=== PATIENT | female | born 1940 | race Caucasian/White ===

== ENCOUNTER 2019-03-17 07:57 | Outpatient (CLI) | payer MEDICARE, OTHER, SELFPAY ==
--- NOTE | 2019-03-17 | EST_ITS ---
Patient Info Name: Ani Delacruz Age: 79 years : 1940 Gender: Female Ht: 60 in Wt: 130 lbs BSA: 1.59 m2 Exam Date: 03/17/2019 9:28 AM Exam Location: [facility] Stress Patient Status: Outpatient Admit Date: 03/17/2019 Staff Ordering Physician: Osman Calhoun DO Attending Provider: Osman Calhoun DO Exercise Technologist: Rajan Elizondo RDCS, RT Exercise Physician: Vance Godinez DO Exam Type: CA stress marta w NM Study Info A regadenoson stress test was performed. Summary 1. 1. Negative lexiscan stress test for ischemic ST changes by ECG criteria. 2. 2. Stable hemodynamics throughout the test. 3. 3. Nuclear scan to follow and will be reported separately. Please correlate with it. 4. 4. Patient informed of the above results. Protocol: Lexiscan Stress ECG Details Stage: REST Duration (min): 3 min : 55 sec HR (bpm): 65 SBP (mmHg): 141 DBP (mmHg): 70 Stage: REST Duration (min): 4 min : 3 sec HR (bpm): 65 SBP (mmHg): 141 DBP (mmHg): 70 Stage: STAGE 1 Duration (min): 0 min : 59 sec HR (bpm): 70 SBP (mmHg): 139 DBP (mmHg): 70 Stage: RECOVERY Duration (min): 1 min : 0 sec HR (bpm): 74 SBP (mmHg): 139 DBP (mmHg): 70 Stage: RECOVERY Duration (min): 2 min : 0 sec HR (bpm): 73 SBP (mmHg): 139 DBP (mmHg): 70 Stage: RECOVERY Duration (min): 3 min : 0 sec HR (bpm): 72 SBP (mmHg): 140 DBP (mmHg): 66 Stage: RECOVERY Duration (min): 4 min : 0 sec HR (bpm): 72 SBP (mmHg): 140 DBP (mmHg): 66 Stage: RECOVERY Duration (min): 4 min : 0 sec HR (bpm): 72 SBP (mmHg): 140 DBP (mmHg): 66 Rest HR: 65 bpm Peak HR: 74 bpm Rest Sys BP: 141 mmHg Peak Sys BP: 140 mmHg Max Pred HR: 139 bpm % Max Pred HR: 53 % Target HR: 118 bpm Max RPP: 10,360 bpm*mmHg Termination Reason: Completed protocol Cardiac Symptoms: None Total Time: 1 min : 0 sec Rest Dawkins BP: 70 mmHg Peak Dawkins BP: 66 mmHg Total Dose: 0.4 mg Resting ECG Sinus rhythm with first degree AV block, RBBB. Stress ECG No ST changes. Arrhythmias None. Report Signatures
--- NOTE | ~2019-03-17 | NM_ITS ---
EXAMINATION: NM marta stress w perfusion DATE: 03/17/2019 15:11 INDICATION: Dyspnea on exertion. TECHNIQUE: Rest images were obtained following intravenous administration of 10.5 mCi Tc99m tetrofosm in (Myoview). The patient was infused intravenously with Lexiscan (regadenoson). Then, 24.2 mCi Tc99m tetrofosmin (Myoview) was administered intravenously, and stress images were obtained. Data was renaldo nstructed into short axis and horizontal and vertical long axis SPECT images. Gated SPECT images were also obtained. COMPARISON: None. FINDINGS: There is no definite reversible or fixed perfusion abnormality to suggest ischemia or infar ction. There is no segmental wall motion abnormality. Left ventricular ejection fraction measures 4 6%. IMPRESSION: 1. No definite ischemia or infarct. 2. Left ventricular ejection fraction measuring 46%. Reviewed, dictated and finalized at location A. SERVICE ATTENDANT
== END 2019-03-17 07:58 | disposition home or self-care (01) ==
PROVIDERS: PCP Internal Medicine; Visit Provider Internal Medicine
DX: R06.09 Other forms of dyspnea (principal)
CPT/HCPCS: 78452; 93017; A9502; J2785

== ENCOUNTER → 2019-04-02 10:37 | Outpatient (CLI) | payer MEDICARE, OTHER, SELFPAY ==
--- NOTE | ~2019-04-02 | XR_ITS ---
EXAMINATION: XR shoulder LT min 2V DATE: 04/02/2019 11:02 INDICATION: Left shoulder primary osteoarthritis. Left shoulder pain. TECHNIQUE: 4 views of left shoulder were obtained. COMPARISON: None. FINDINGS: Bone alignment is normal. No fracture. There is mild osteoarthritis of glenohumeral joint a nd acromioclavicular joint. IMPRESSION: 1. Mild polyarticular osteoarthritis. Reviewed, dictated and finalized at location A. N BLEACHER
== END ==
PROVIDERS: PCP Internal Medicine; Visit Provider Nurse Practitioner Family
DX: M19.012 Primary osteoarthritis, left shoulder (principal)
CPT/HCPCS: 73030

== ENCOUNTER 2019-10-15 08:58 | Outpatient (CLI) | payer MEDICARE, OTHER, SELFPAY ==
--- NOTE | ~2019-10-15 | CT_ITS ---
EXAMINATION: CT abdomen pelvis wo con DATE: 10/15/2019 09:50 INDICATION: Left lower quadrant abdominal pain. TECHNIQUE: Computed tomography (CT) of the abdomen and pelvis was performed without intravenous contr ast. Automated exposure control and iterative reconstruction technique were employed. The dose-length product was 428.41 mGy-cm. COMPARISON: CT pelvis 03/14/2018 FINDINGS: The visualized portions of the lung bases demonstrates mild atelectasis on the right. No pl eural effusion. The heart size is normal. No pericardial effusion. There is a left posterior diaphrag matic hernia containing fat. The liver, gallbladder, spleen, pancreas, and adrenal glands are normal. There is cortical thinning of the kidneys. There is a 19 mm cyst in left kidney. There is no urolith iasis. There is diverticulosis of the colon without evidence of diverticulitis. There are no dilated loops of bowel. The appendix is not visualized. There are no pathologically enlarged lymph nodes. The re is no free intraperitoneal fluid. There is lumbar levoscoliosis and severe spondylosis. There is s evere lower thoracic spondylosis. IMPRESSION: 1. No etiology for the patient's symptoms. Reviewed, dictated and finalized at location B.
[2019-10-15 09:35] LABS: Estimated Glomerular Filt Rate 29
== END 2019-10-15 08:59 | disposition home or self-care (01) ==
PROVIDERS: PCP Internal Medicine; Visit Provider Internal Medicine
DX: R10.32 Left lower quadrant pain (principal)
CPT/HCPCS: 74176

== ENCOUNTER 2019-12-16 10:33 | Outpatient (CLI) | payer MEDICARE, OTHER, SELFPAY ==
--- NOTE | ~2019-12-16 | MM_ITS ---
EXAMINATION: MM screening denae BI w marybeth HISTORY: Screening mammogram TECHNIQUE: Craniocaudal and mediolateral oblique 3-D tomosynthesis images were obtained and synthetic 2-D images were generated. CAD analysis was submitted and interpreted. COMPARISON: 12/06/2018, 12/06/2017, 12/03/2016 bilateral digital screening mammogram examinations BREAST PARENCHYMAL COMPOSITION: There are scattered areas of fibroglandular density. FINDINGS: Bilateral benign calcifications and arterial calcifications. There is bilateral upper outer quadrant architectural distortion and calcified fat necrosis likely secondary to history of bilatera l partial mastectomy for bilateral breast cancer. There is no evidence of suspicious mass, calcification, or architectural distortion to suggest malign ashlie in either breast. There has been no suspicious interval change. IMPRESSION: 1. No mammographic evidence of malignancy. 2. Recommend routine screening mammography in one year. BI-RADS Category 2: Benign finding(s). Reviewed, dictated and finalized at location A.
== END 2019-12-16 10:34 | disposition home or self-care (01) ==
LOC: ANHIMG 10:40
PROVIDERS: PCP Internal Medicine; Visit Provider Internal Medicine
DX: Z12.31 Encounter for screening mammogram for malignant neoplasm of breast (principal)
CPT/HCPCS: 77063; 77067

== ENCOUNTER 2019-12-20 01:40 | Day surgery (SDC) | payer MEDICARE, OTHER, SELFPAY ==
[2019-12-09 10:47] VITALS: BMI 26.4
--- NOTE | 2019-12-20 12:23 | WPDANESEPPF ---
Anes - Initial Pre Proc Eval Procedure: Operation Date: 12/20/19 14:00 Proposed Procedures p Colonoscopy - Blake Coffey DO Date/Time: 12/20/19 12:23 Surgeon: Blake Coffey DO Pre Op Diagnosis: Bloody Stool/ Diarrhea Patient Data Age: 79 Gender: F Height: 1.52 m Weight: 61.3 kg Allergies Allergy/AdvReac Type Severity Reaction Status Date / Time No Known Allergies Allergy Verified 12/20/19 12:27 Home Medications Medication Instructions Recorded Confirmed Type ascorbate calcium (vitamin C) 500 500 mg PO BID 12/24/18 12/09/19 History mg tablet calcium carb-vit D3-minerals 600 1 tablet PO BID 12/24/18 12/09/19 History mg calcium-400 unit tablet cetirizine 5 mg-pseudoephedrine ER 1 tablet PO Q12H 12/24/18 12/09/19 History 120 mg tablet,extended release,12hr halobetasol-lactic acid 0.05 %-10 pkg TOPICAL 12/24/18 History % topical pack, cream and cream herbal complex no.174 450 mg 900 mg PO .2QD cap 12/24/18 12/09/19 History capsule hydroxychloroquine 200 mg tablet 200 mg PO BID 12/24/18 12/09/19 History leflunomide 10 mg tablet 10 mg PO DAILY 12/24/18 12/09/19 History multivitamin 1 tablet PO DAILY 12/24/18 12/09/19 History omega-3 fatty acids 1,000 mg 1,000 mg PO BID 12/24/18 12/09/19 History capsule psyllium husk 0.4 gram capsule See Rx Instructions PO DAILY 12/24/18 12/09/19 History red yeast rice 600 mg capsule 600 mg PO DAILY 12/24/18 12/09/19 History tramadol 50 mg tablet 50 mg PO Q12H PRN #60 tablet 12/30/18 12/09/19 Rx olopatadine 0.1 % eye drops 1 drop EACH EYE BID 03/25/19 12/09/19 History lisinopril 20 1 tablet PO DAILY #90 tablet 07/20/19 12/09/19 Rx mg-hydrochlorothiazide 12.5 mg tablet fluticasone propionate 50 1 spray NASAL BID #15.8 ml 08/13/19 12/09/19 Rx mcg/actuation nasal spray,suspension levothyroxine 75 mcg tablet 75 mcg PO DAILY #30 tablet 08/15/19 12/09/19 Rx Patient hx anesthesia problems: none Family hx anesthesia problems: none [facility] Past Medical History Medical History (Updated 10/16/19 @ 09:16 by Osman Calhoun DO) History of breast cancer History of colonic polyps Hypertension Hypothyroidism Osteoarthritis Rotator cuff tear, right Surgical History Surgical History History of appendectomy History of breast surgery History of cataract surgery History of hip surgery History of hysterectomy History of rotator cuff surgery Status post de Quervain's release surgery Family History Family History Mother Family history of blood dyscrasia, Onset Age: 92 Cerebrovascular accident, Onset Age: 92 Father Hypertension, Onset Age: 98 Other Breast cancer Rheumatoid arthritis Arthritis Spinal stenosis Social History Social History Smoking status: Never smoker Second hand tobacco smoke exposure: No Alcohol intake: current Alcohol use details: socially Substance use: never Substance use type: does not use Living arrangements: alone Spiritual care concerns: No Anes - Eval Final PreProcedure Day of Procedure 12/20/19 12:23 Patient weight: overweight Heart: regular rate and rhythm Lungs: clear to auscultation and normal air movement Airway: Mallampati scale class II Neurological: alert and oriented Last oral intake: >/= 8 hours ASA classification: III Emergent: no Anesthetic plan: proceed Anesthesia type and monitoring: general GIVS Informed Consent: The patient's anesthetic plan and its attendant risks and benefits were discussed with the patient/family/POA. Questions were solicited and answers provided to the satisfaction of the patient/family/POA.
[2019-12-20 12:44] VITALS: BP 152/72; PULSE 71; RESP 18; TEMP 36.6; O2SAT 100; BMI 25.1
--- NOTE | 2019-12-20 12:47 | SUR.PREOP ---
PT ARRIVED WITH ALL VISIBLE SKIN INTAKE. BRUISING TO THE LEFT EYE FROM A FALL YESTERDAY.
[2019-12-20] MEDS: LACTATED RINGERS 1,000 ML 150 ML IV CONT (13:09)
--- NOTE | 2019-12-20 13:28 | PM.IMHP ---
H&P: HPI History of Present Illness Date/Time: 12/20/19 13:28 Chief complaint: Bloody Stool/ Diarrhea Narrative: Reason for visit is colonoscopy. This very pleasant lady's seen at the request of the primary physician. Impression: Here very pleasant lady the an episode of abdominal pain, cramping and bloody diarrhea. This may have been secondary lying infection versus ischemia versus diverticulitis. It has since resolved. History of adenomatous colon polyps. Heart murmur. HTN. Breast cancer status post radiation and chemotherapy. Rheumatoid arthritis. Hypothyroidism. Recommendation: Colonoscopy. History: This very pleasant lady was traveling from [place]. She admits to eating a lot of cashew nuts. She subsequently began having some severe abdominal pain, cramping and bloody diarrhea. This lasted approximately 2 days. It has since stopped. This was originally back in August. Patient is here for colonoscopy evaluate for underlying inflammatory neoplastic disease. Patient does have a remote history of Adenomatouscolon polyps. Physical examination: General: very pleasant patient in no acute distress. HEENT: Head was normocephalic sclerae is clear mouth without masses neck was supple. Left eye shows ecchymosis. Heart: Rate rhythm regular without S3 or S4.A systolic murmur noted at the 2nd right intercostal space. Lungs: CTA. Abdomen: Soft with no guarding or rigidity. Bowel sounds were active. Neurologic: Cranial nerves 2 through 12 intact. No focal defects. No clonus. Musculoskeletal system: Revealed no joint tenderness or swelling no muscle atrophy. Extremities: Reveal no significant edema. Skin: Warm and dry with normal turgor. Mental status: intact. Patient is alert and oriented. Review of Systems Review of Systems: All systems reviewed & are unremarkable except as noted in HPI and below PMFSH Past Medical History Medical History (Updated 10/16/19 @ 09:16 by Osman Calhoun DO) History of breast cancer History of colonic polyps Hypertension Hypothyroidism Osteoarthritis Rotator cuff tear, right Surgical History Surgical History History of appendectomy History of breast surgery History of cataract surgery History of hip surgery History of hysterectomy History of rotator cuff surgery Status post de Quervain's release surgery Family History Family History Mother Family history of blood dyscrasia, Onset Age: 92 Cerebrovascular accident, Onset Age: 92 Father Hypertension, Onset Age: 98 Other Breast cancer Rheumatoid arthritis Arthritis Spinal stenosis Social History Social History Smoking status: Never smoker Second hand tobacco smoke exposure: No Alcohol intake: current Alcohol use details: socially Substance use: never Substance use type: does not use Living arrangements: alone Spiritual care concerns: No Meds Home Medications and Allergies Home Medications Medication Instructions Recorded Confirmed Type ascorbate calcium (vitamin C) 500 500 mg PO BID 12/24/18 12/20/19 History mg tablet calcium carb-vit D3-minerals 600 1 tablet PO BID 12/24/18 12/20/19 History mg calcium-400 unit tablet cetirizine 5 mg-pseudoephedrine ER 1 tablet PO Q12H 12/24/18 12/20/19 History 120 mg tablet,extended release,12hr herbal complex no.174 450 mg 900 mg PO .2QD cap 12/24/18 12/20/19 History capsule hydroxychloroquine 200 mg tablet 200 mg PO BID 12/24/18 12/20/19 History leflunomide 10 mg tablet 10 mg PO DAILY 12/24/18 12/20/19 History multivitamin 1 tablet PO DAILY 12/24/18 12/20/19 History omega-3 fatty acids 1,000 mg 1,000 mg PO BID 12/24/18 12/20/19 History capsule psyllium husk 0.4 gram capsule See Rx Instruct
[2019-12-20 14:10] VITALS: BP 123/51; PULSE 66; RESP 21; O2SAT 98
[2019-12-20 14:20] VITALS: BP 129/51; PULSE 67; RESP 17; O2SAT 98
[2019-12-20 14:31] VITALS: BP 109/48; PULSE 64; RESP 16; O2SAT 98
== END 2019-12-20 14:50 | disposition home or self-care (01) ==
PROVIDERS: PCP Internal Medicine; Visit Provider Internal Medicine Gastroenterology
PROC: 0DJD8ZZ Inspection of Lower Intestinal Tract, Via Natural or Artificial Opening Endoscopic (ICD-10-PCS; CPT 45378; principal; 2019-12-20 14:00)
DX: R19.7 Diarrhea, unspecified (principal); K92.1 Melena; R10.9 Unspecified abdominal pain; D12.0 Benign neoplasm of cecum; D12.2 Benign neoplasm of ascending colon; K57.30 Diverticulosis of large intestine without perforation or abscess without bleeding; I10 Essential (primary) hypertension; E03.9 Hypothyroidism, unspecified; M06.9 Rheumatoid arthritis, unspecified; R01.1 Cardiac murmur, unspecified; Z85.3 Personal history of malignant neoplasm of breast; Z92.3 Personal history of irradiation; Z86.010 Personal history of colon polyps
CPT/HCPCS: 45385; 45380; 88305; J2001; J2704; J7120

== ENCOUNTER → 2020-03-28 15:49 | Outpatient (CLI) | payer MEDICARE, OTHER, SELFPAY ==
--- NOTE | ~2020-03-28 | MR_ITS ---
EXAMINATION: MR shoulder RT wo con DATE: 03/28/2020 17:08 INDICATION: Right shoulder pain TECHNIQUE: Magnetic resonance imaging (MRI) of the right shoulder was performed without intravenous c ontrast. Sequences included axial PD-weighted FS FSE, coronal oblique PD-weighted FS FSE, coronal obl ique T2-weighted FS FSE, sagittal PD-weighted FS FSE, and sagittal T1-weighted SE. COMPARISON: None. FINDINGS: Coracoacromial arch: The acromion undersurface is curved in morphology (type II). Small anterior and lateral subacromial s purs along the insertion of the normal coracoacromial ligament. Moderate acromioclavicular osteoarthr itis. Rotator cuff: Complete tear along the middle and superior facet footplates of the infraspinatus tendon and majority of the supraspinatus tendon. A minimal portion of the anterior most supraspinatus tendon appears to remain intact. The tear margin is retracted approximately 5 cm medially to be on the rim of the gleno id. There is severe hemiatrophy of the infraspinatus muscle belly and moderate fatty atrophy of the s upraspinatus muscle belly. The teres minor tendon remains normal. Moderate subscapularis tendinopathy without discrete tear. Biceps tendon, glenoid labrum and glenohumeral cartilage: Partial thickness tear with significant attenuation of the extra articular long head biceps tendon be ginning approximately 5 cm below the level of the intertubercular groove. Of the remaining intact por tion of the tendon does not appear to extend to the glenoid anchor and is likely to represent an acce ssory head and portion which appears to insert along the floor of the intertubercular groove and a co uple of which appears contiguous with the coracohumeral ligament and anterior most portion of the sup raspinatus tendon. There is cephalad subluxation of the humeral head with significant cartilage loss involving greater than 50% the cartilage thickness along the cephalad third of the glenoid. Degenerat master tearing of the superior to posterior superior glenoid labrum. Additional partial thickness cartil age loss along the humeral head greatest superomedially where there is some underlying subarticular e brittny. Fluid: Moderate-sized glenohumeral joint effusion which extends into the subacromial/subdeltoid bursa throug h the full-thickness rotator cuff tear. There is synovitis at the axillary recess. Additional small a mount of fluid tracks caudally along the long head biceps tendon sheath. No intra-articular loose ost eochondral bodies. There are a few small round filling defects potentially representing extra-articul ar loose bodies within the subacromial/subdeltoid bursa. Bones: No fracture or pathologic marrow replacing process. IMPRESSION: 1. 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 2. Likely secondary degenerative tearing of the superior to posterior superior glenoid labrum and mod erate to severe glenohumeral osteoarthritis. 3. Partial thickness tear of the long head biceps tendon with remaining small and tach portion of the tendon likely representing accessory head inserting near the extensive the intertubercular groove wi th no evident intact tendon extending to the glenoid anchor. 4. Moderate acromioclavicular osteoarthritis. Reviewed, dictated and finalized at location A. ND WORKER IMPRESSION: 1. 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 2. Likely secondary degenerative tearing of the superior to posterior superior gle
== END ==
PROVIDERS: PCP Internal Medicine; Visit Provider Nurse Practitioner Family
DX: S46.211A Strain of muscle, fascia and tendon of other parts of biceps, right arm, initial encounter (principal); M19.011 Primary osteoarthritis, right shoulder; S43.431A Superior glenoid labrum lesion of right shoulder, initial encounter
CPT/HCPCS: 73221

== ENCOUNTER 2020-04-17 09:41 | Outpatient (CLI) | payer MEDICARE, OTHER, SELFPAY | END 2020-04-17 09:42 | disposition home or self-care (01) | LOC: ANHCOVIDVC 09:41 | PROVIDERS: PCP Internal Medicine | DX: Z23 Encounter for immunization (principal) | CPT/HCPCS: 0001A; 91300 ==

== ENCOUNTER 2020-05-08 09:43 | Outpatient (CLI) | payer MEDICARE, OTHER, SELFPAY | END 2020-05-08 09:44 | disposition home or self-care (01) | LOC: ANHCOVIDVC 09:43 | PROVIDERS: PCP Internal Medicine | DX: Z23 Encounter for immunization (principal) | CPT/HCPCS: 0002A; 91300 ==

== ENCOUNTER 2020-06-08 06:41 | Outpatient (CLI) | payer MEDICARE, OTHER, SELFPAY ==
--- NOTE | ~2020-06-08 | MR_ITS ---
EXAMINATION: MR cervical spine wo con DATE: 06/08/2020 15:33 INDICATION: Neck pain. TECHNIQUE: Magnetic resonance imaging (MRI) of the cervical spine was performed without intravenous c ontrast. Sequences included sagittal T2-weighted FSE, sagittal STIR FSE, sagittal T1-weighted FSE, ax ial MERGE, and axial T2-weighted FSE. COMPARISON: None FINDINGS: There is 9 degrees levocurvature of cervical spine. There is 2 mm retrolisthesis of C3 on C 4, 2 mm anterolisthesis of C4 on C5, and 3 mm retrolisthesis of C6 on C7. Vertebral body heights are normal. There is severely decreased disc height from C3-C4 through C6-C7. The spinal cord signal inte nsity is normal. The following disc levels are specifically discussed: C2-C3: The disc does not extend beyond the endplate margin. There is severe right and mild left uncov ertebral joint osteoarthritis. There is severe bilateral facet joint osteoarthritis. There is mild ri ght neural foraminal stenosis. There is mild central canal stenosis. C3-C4: The disc is bulging. There is severe bilateral uncovertebral joint osteoarthritis. There is se ashley right and moderate left facet joint osteoarthritis. There is moderate right and mild left neural foraminal stenosis. There is mild central canal stenosis. C4-C5: The disc is bulging. There is severe bilateral uncovertebral joint osteoarthritis. There is se ashley bilateral facet joint osteoarthritis. There is moderate right and mild left neural foraminal geovany nosis. There is mild central canal stenosis. C5-C6: The disc is bulging. There is severe bilateral uncovertebral joint osteoarthritis. There is mi ld right and severe left facet joint osteoarthritis. There is mild right and moderate left neural for aminal stenosis. There is mild central canal stenosis. C6-C7: The disc is bulging. There is severe bilateral uncovertebral joint osteoarthritis. There is mo derate bilateral facet joint osteoarthritis. There is mild right and moderate left neural foraminal s tenosis. There is mild central canal stenosis. C7-T1: The disc is bulging. There is moderate bilateral uncovertebral joint osteoarthritis. There is mild right and severe left facet joint osteoarthritis. There is mild bilateral neural foraminal steno sis. There is mild central canal stenosis. IMPRESSION: 1. Severe cervical spondylosis. Reviewed, dictated and finalized at location B.
--- NOTE | 2020-06-08 06:59 | ECHO_ITS ---
Patient Info Name: Ani Delacruz Age: 80 years : 1940 Gender: Female Ht: 60 in Wt: 130 lbs BSA: 1.59 m2 HR: 69 bpm BP: 152 / 76 mmHg Technical Quality: Good Exam Date: 06/08/2020 7:10 AM Exam Location: [facility] Patient Status: Outpatient Admit Date: 06/08/2020 Staff Ordering Physician: Osman Calhoun DO Parks [employer] Recreation Worker: Sayra Baca RDCS Attending Provider: Osman Calhoun DO Referring Physician: Lj PATEL; Exam Type: CA echo doppler color flow Study Info Indications R01.1 - Cardiac murmur, unspecified Complete two-dimensional, color flow and Doppler transthoracic echocardiogram is performed. Summary 1. Complete two-dimensional, color flow and Doppler transthoracic echocardiogram is performed. 2. Left ventricular chamber dimension is normal. 3. Left ventricular systolic function is normal, estimated at 50-55%. 4. There is mildly increased left ventricular wall thickness. 5. The left ventricular diastolic function is abnormal. 6. E/e' 30 is significantly elevated. 7. Global longitudinal strain is abnormal at -14.0%. 8. Left atrial chamber dimension is moderately enlarged. 9. Right atrial chamber dimension is mildly enlarged. 10. There is moderate aortic valve sclerosis. 11. There is mild aortic valve stenosis with a peak velocity of 219 cm/s, mean gradient of 11 mmHg, and aortic valve area of 1.8 cm2. 12. There is trace aortic valve regurgitation. 13. The mitral valve has moderately calcified leaflets and moderately calcified annulus. 14. There is moderate mitral valve regurgitation. 15. There is moderate tricuspid valve regurgitation. 16. Moderate pulmonary hypertension, estimated pulmonary arterial systolic pressure is 53 mmHg. Left Ventricle E/e' 30 is significantly elevated. Global longitudinal strain is abnormal at -14.0%. Left ventricular chamber dimension is normal. Left ventricular systolic function is normal, estimated at 50-55%. There is mildly increased left ventricular wall thickness. The left ventricular diastolic function is abnormal. Right Ventricle Right ventricular chamber dimension is normal. Right ventricular systolic function is normal. Left Atria Left atrial chamber dimension is moderately enlarged. Right Atria Right atrial chamber dimension is mildly enlarged. Aortic Valve The aortic valve is trileaflet. There is moderate aortic valve sclerosis. There is mild aortic valve stenosis with a peak velocity of 219 cm/s, mean gradient of 11 mmHg, and aortic valve area of 1.8 cm2. There is trace aortic valve regurgitation. Pulmonic Valve There is no pulmonic regurgitation. Mitral Valve The mitral valve has moderately calcified leaflets and moderately calcified annulus. There is no mitral valve stenosis. There is moderate mitral valve regurgitation. Tricuspid Valve There is moderate tricuspid valve regurgitation. Moderate pulmonary hypertension, estimated pulmonary arterial systolic pressure is 53 mmHg. Pericardium/Pleural There is no pericardial effusion. Inferior Vena Cava Normal inferior vena cava with >50% collapse upon inspiration consistent with normal right atrial pressure, 5 mmHg. Aorta The aortic root size at the sinus of Valsalva is normal. Left Ventricular Outflow Tract Name Value Normal
== END 2020-06-08 06:42 | disposition home or self-care (01) ==
PROVIDERS: PCP Internal Medicine; Visit Provider Internal Medicine
DX: R01.1 Cardiac murmur, unspecified (principal); M54.2 Cervicalgia; R20.0 Anesthesia of skin; M47.892 Other spondylosis, cervical region; I08.3 Combined rheumatic disorders of mitral, aortic and tricuspid valves
CPT/HCPCS: 72141; 93306

== ENCOUNTER 2020-09-05 09:41 | Outpatient (CLI) | payer MEDICARE, OTHER, SELFPAY ==
--- NOTE | 2020-09-05 11:00 | NEURO_ITS ---
Impression: # Complains of left upper extremity numbness. # Left ulnar neuropathy around the elbow. # Bilateral sensory Carpal Tunnel Syndrome, left more than right. # Normal F-waves. # Needle/EMG exam minimally neurogenic in left APB but rest of the muscles are normal. Nerve Conduction Studies Anti Sensory Summary Table Stim Site NR Peak (ms) P-T Amp (?V) Site1 Site2 Delta-P (ms) Dist (cm) Luis Angel (m/s) Left Median Anti Sensory (2-3nd Digit) Wrist 4.8 10.4 Wrist 2-3nd Digit 4.8 14.0 29 Wrist 4.2 10.6 Wrist 2-3nd Digit 4.8 14.0 29 Right Median Anti Sensory (2-3nd Digit) Wrist 4.1 31.1 Wrist 2-3nd Digit 4.1 14.0 34 Wrist 6.1 8.9 Wrist 2-3nd Digit 4.1 14.0 34 Left Radial Anti Sensory (Base 1st Digit) Wrist 2.2 15.9 Wrist Base 1st Digit 2.2 0.0 Right Radial Anti Sensory (Base 1st Digit) Wrist 2.7 18.9 Wrist Base 1st Digit 2.7 0.0 Left Ulnar Anti Sensory (5th Digit) Wrist 2.7 17.6 Wrist 5th Digit 2.7 14.0 52 Right Ulnar Anti Sensory (5th Digit) Wrist 3.6 19.4 Wrist 5th Digit 3.6 14.0 39 Motor Summary Table Stim Site NR Onset (ms) O-P Amp (mV) Site1 Site2 Delta-0 (ms) Dist (cm) Luis Angel (m/s) Left Median Motor (Abd Poll Brev) Wrist 3.8 0.7 Elbow Wrist 5.1 28.0 55 Elbow 8.9 2.2 Right Median Motor (Abd Poll Brev) Wrist 3.4 2.3 Elbow Wrist 5.2 27.0 52 Elbow 8.6 2.0 Left Ulnar Motor (Abd Dig Minimi) Wrist 2.8 4.9 A Elbow Wrist 6.0 27.0 45 A Elbow 8.8 3.6 B Elbow Wrist 3.8 17.0 45 B Elbow 6.6 3.5 Right Ulnar Motor (Abd Dig Minimi) Wrist 2.9 5.2 A Elbow Wrist 5.0 26.0 52 A Elbow 7.9 4.0 F Wave Studies NR F-Lat (ms) L-R F-Lat (ms) Left Median (Mrkrs) (Abd Poll Brev) 28.71 0.70 Right Median (Mrkrs) (Abd Poll Brev) 29.42 0.70 Left Ulnar (Mrkrs) (Abd Dig Min) 30.24 0.34 Right Ulnar (Mrkrs) (Abd Dig Min) 30.57 0.34 EMG Side Muscle Nerve Root Ins Act Fibs Amp Dur Recrt Comment Right 1stDorInt Ulnar C8-T1 Nml Nml Nml Nml Nml Right Ext Indicis Radial (Post Int) C7-8 Nml Nml Nml Nml Nml Right Ext Digitorum Radial (Post Int) C7-8 Nml Nml Nml Nml Nml Right BrachioRad Radial C5-6 Nml Nml Nml Nml Nml Right PronatorTeres Median C6-7 Nml Nml Nml Nml Nml Right Abd Poll Brev Median C8-T1 Nml Nml Nml Nml Nml Left 1stDorInt Ulnar C8-T1 Nml Nml Nml Nml Nml Left Ext Indicis Radial (Post Int) C7-8 Nml Nml Nml Nml Nml Left Ext Digitorum Radial (Post Int) C7-8 Nml Nml Nml Nml Nml Left BrachioRad Radial C5-6 Nml Nml Nml Nml Nml Left PronatorTeres Median C6-7 Nml Nml Nml Nml Nml Left Abd Poll Brev Median C8-T1 Nml Nml Incr >12ms Reduced Right ABD Dig Min Ulnar C8-T1 Nml Nml Nml Nml Nml Left ABD Dig Min Ulnar C8-T1 Nml Nml Nml Nml Nml MTDD
== END 2020-09-05 09:42 | disposition home or self-care (01) ==
PROVIDERS: PCP Internal Medicine; Visit Provider Neurological Surgery
DX: G56.02 Carpal tunnel syndrome, left upper limb (principal); G56.03 Carpal tunnel syndrome, bilateral upper limbs; G56.22 Lesion of ulnar nerve, left upper limb
CPT/HCPCS: 95886; 95911

== ENCOUNTER 2021-01-22 09:40 | Outpatient (CLI) | payer MEDICARE, OTHER, SELFPAY ==
--- NOTE | ~2021-01-22 | MM_ITS ---
EXAMINATION: MM screening denae BI w marybeth HISTORY: Screening TECHNIQUE: Craniocaudal and mediolateral oblique 3-D tomosynthesis images were obtained and synthetic 2-D images were generated. CAD analysis was submitted and interpreted. COMPARISON: Comparison to multiple prior studies sequentially, with oldest reviewed study dated 11/16. BREAST PARENCHYMAL COMPOSITION: Breast composed of scattered areas of fibroglandular density. FINDINGS: There is no evidence of suspicious mass, calcification, or architectural distortion to sugg est malignancy in either breast. There has been no suspicious interval change. IMPRESSION: 1. No mammographic evidence of malignancy. 2. Recommend routine screening mammography in one year. BI-RADS Category 1: Negative Reviewed, dictated and finalized at location A. IC ADDRESS TECHNICIAN
== END 2021-01-22 09:41 | disposition home or self-care (01) ==
LOC: ANHIMG 09:43
PROVIDERS: PCP Internal Medicine; Visit Provider Internal Medicine
DX: Z12.31 Encounter for screening mammogram for malignant neoplasm of breast (principal)
CPT/HCPCS: 77063; 77067

== ENCOUNTER 2021-01-26 14:31 | Outpatient (CLI) | payer MEDICARE, OTHER, SELFPAY ==
--- NOTE | 2021-01-26 14:56 | ECHO_ITS ---
Patient Info Name: Ani Delacruz Age: 81 years : 1940 Gender: Female Ht: 60 in Wt: 125 lbs BSA: 1.56 m2 HR: 78 bpm BP: 152 / 72 mmHg Technical Quality: Fair Exam Date: 01/26/2021 3:33 PM Exam Location: [facility] Patient Status: Outpatient Admit Date: 01/26/2021 Staff Ordering Physician: Vance Godinez DO Emissions Repair Technician: ALEX Attending Provider: Vance Godinez DO Referring Physician: Herbert MAIER; Exam Type: CA echo doppler color flow Study Info Indications - NONRHEUMATIC AORTIC VALVE STENOSIS Complete two-dimensional, color flow and Doppler transthoracic echocardiogram is performed. Summary 1. Complete two-dimensional, color flow and Doppler transthoracic echocardiogram is performed. 2. Left ventricular chamber dimension is normal. 3. Left ventricular systolic function is preserved, estimated at 50-55%. 4. The left ventricular diastolic function is grade III diastolic dysfunction. 5. E/e' 39 is significantly elevated. 6. Left atrial chamber dimension is moderately enlarged. 7. Right atrial chamber dimension is mildly enlarged. 8. There is mild aortic valve sclerosis. 9. There is mild aortic valve stenosis with a peak velocity of 257 cm/s, mean gradient of 12 mmHg, and aortic valve area of 1.4 cm2. 10. There is mild aortic valve regurgitation. 11. The mitral valve has mildly calcified leaflets and severely calcified annulus. 12. There is mild mitral valve stenosis based on valve area of 1.7 cm2 by VTI and mean gradient of 3 mmHg. 13. There is mild mitral valve regurgitation. 14. There is mild to moderate tricuspid valve regurgitation. 15. Moderate pulmonary hypertension, estimated pulmonary arterial systolic pressure is 50 mmHg. Left Ventricle E/e' 39 is significantly elevated. Left ventricular systolic function is preserved, estimated at 50-55%. Left ventricular chamber dimension is normal. The left ventricular diastolic function is grade III diastolic dysfunction. Right Ventricle Right ventricular systolic function is normal and with normal TAPSE 1.7 cm. Right ventricular chamber dimension is normal. Left Atria Left atrial chamber dimension is moderately enlarged. Right Atria Right atrial chamber dimension is mildly enlarged. Aortic Valve The aortic valve is trileaflet. There is mild aortic valve sclerosis. There is mild aortic valve stenosis with a peak velocity of 257 cm/s, mean gradient of 12 mmHg, and aortic valve area of 1.4 cm2. There is mild aortic valve regurgitation. Pulmonic Valve There is no pulmonic regurgitation. Mitral Valve The mitral valve has mildly calcified leaflets and severely calcified annulus. There is mild mitral valve stenosis based on valve area of 1.7 cm2 by VTI and mean gradient of 3 mmHg. There is mild mitral valve regurgitation. Tricuspid Valve There is mild to moderate tricuspid valve regurgitation. Moderate pulmonary hypertension, estimated pulmonary arterial systolic pressure is 50 mmHg. Pericardium/Pleural There is no pericardial effusion. Inferior Vena Cava Normal inferior vena cava with >50% collapse upon inspiration consistent with normal right atrial pressure, 5 mmHg. Aorta The aortic root size at the sinus of Valsalva is normal. Left Ventricular Outflow Tract Name Value Normal LVOT 2D ----
== END 2021-01-26 14:32 | disposition home or self-care (01) ==
LOC: ANHCARD 14:34
PROVIDERS: PCP Internal Medicine; Visit Provider Internal Medicine Cardiovascular Disease
DX: I35.0 Nonrheumatic aortic (valve) stenosis (principal); I35.1 Nonrheumatic aortic (valve) insufficiency; I34.0 Nonrheumatic mitral (valve) insufficiency; I36.1 Nonrheumatic tricuspid (valve) insufficiency; I27.20 Pulmonary hypertension, unspecified
CPT/HCPCS: 93306

== ENCOUNTER 2021-03-24 18:24 | Emergency (ER) | payer MEDICARE, OTHER, SELFPAY ==
--- NOTE | 2021-03-24 18:25 | ED.WOUNDLAC ---
HPI - Wound/Laceration General Chief Complaint: Wound/Laceration Stated Complaint: Laceration on forehead Time Seen by Provider: 03/24/21 18:39 Source: patient, RN notes reviewed and old records reviewed Mode of arrival: ambulatory Limitations: no limitations History of Present Illness HPI narrative: 81-year-old female presents to the [facility] with complaints of a laceration to her right sided forehead. States that she slipped and fell approximately 4:00 today. Bleeding is controlled. Does not take blood thinners. Denies neck or head pain. No blurry vision or change in vision. Denies any back pain, chest pain, abdominal pain. Neurologically intact. Related Data Home Medications Medication Instructions Recorded Confirmed calcium carb-vit D3-minerals 600 1 tablet PO BID 12/24/18 03/24/21 mg calcium-400 unit tablet cetirizine 5 mg-pseudoephedrine ER 1 tablet PO Q12H 12/24/18 03/24/21 120 mg tablet,extended release,12hr herbal complex no.174 450 mg 900 mg PO .2QD cap 12/24/18 03/24/21 capsule hydroxychloroquine 200 mg tablet 200 mg PO BID 12/24/18 03/24/21 leflunomide 10 mg tablet 10 mg PO DAILY 12/24/18 03/24/21 multivitamin 1 tablet PO DAILY 12/24/18 03/24/21 psyllium husk 0.4 gram capsule See Rx Instructions PO DAILY 12/24/18 03/24/21 olopatadine 0.1 % eye drops 1 drop EACH EYE BID 03/25/19 03/24/21 biotin 10,000 mcg disintegrating 10,000 mcg PO DAILY 06/21/20 03/24/21 tablet calcium citrate 250 mg 1 tablet PO DAILY tablet 06/21/20 03/24/21 calcium-vitamin D3 5 mcg (200 unit) tablet fish oil 400 mg-flaxseed 400 2 cap PO BID cap 06/21/20 03/24/21 mg-prim,blk [employer] sales and lending team member,borag oils 200 mg capsule tramadol 200 mg capsule 200 mg PO DAILY 06/21/20 03/24/21 24h,extended release(25-75) vitamins A,C,U-iheq-mqfhmp 14,320 1 cap PO DAILY cap 06/21/20 03/24/21 unit-226 mg-200 unit capsule Allergies Allergy/AdvReac Type Severity Reaction Status Date / Time No Known Allergies Allergy Verified 03/24/21 18:48 Review of Systems Review of Systems: All systems reviewed & are unremarkable except as noted in HPI and below Constitutional: Constitutional: Reports no additional constitutional complaints, Denies chills and Denies fever(s) Eyes: Eyes: Reports no additional eye complaints, Denies change in vision and Denies photophobia ENT: Reports system reviewed and no additional complaints, except as documented Cardiovascular: Cardiovascular: Reports no additional cardiovascular complaints and Denies chest pain Respiratory: Respiratory: Reports no additional respiratory complaints, Denies cough and Denies dyspnea Gastrointestinal: Gastrointestinal: Reports no additional gastrointestinal complaints, Denies abdominal pain, Denies nausea and Denies vomiting Musculoskeletal: Musculoskeletal: Reports no additional musculoskeletal complaints and Denies back pain Integumentary/Breasts: Skin/Breast: Reports as per HPI, Denies swelling and Reports wounds (forehead laceration) Neurologic: Reports system reviewed and no additional complaints, except as documented, Denies confusion, Denies vertigo, Denies dizziness, Denies syncope, Denies headache(s), Denies focal weakness, Denies numbness and Denies weakness Psychiatric: Psychiatric: Reports no additional psychiatric complaints Allergic/Immunologic: Allergic/Immunologic: Reports no additional allergic/immunologic complaints PMFSH Past Medical History Medical History History of breast cancer History of colonic polyps Hypertension Hypothyroidism Osteoarthritis Rotator cuff tear, right Surgical History Surgical History History of appendectomy History of breast surgery History of cataract surgery History of hip surgery History of hysterectomy Status post de Quervain's release surgery Family History Family History
[2021-03-24 18:40] VITALS: BP 146/79; PULSE 92; RESP 18; TEMP 36.8; O2SAT 100
[2021-03-24] MEDS: LIDOCAINE, EPINEPHRINE, TETRACAINE VISCOUS SOLN 3 ML TOPICAL (18:58)
[2021-03-24] MEDS: TETANUS,DIPHTHERIA,AC PERTUSSIS ADULT (0.5 ML) BOOSTRIX IM (18:58)
== END 2021-03-24 19:52 | disposition home or self-care (01) ==
PROVIDERS: Emergency Provider Nurse Practitioner; PCP Internal Medicine
DX: S01.81XA Laceration without foreign body of other part of head, initial encounter (principal); W01.0XXA Fall on same level from slipping, tripping and stumbling without subsequent striking against object, initial encounter; Z23 Encounter for immunization; I10 Essential (primary) hypertension; E03.9 Hypothyroidism, unspecified; M19.90 Unspecified osteoarthritis, unspecified site; Z85.3 Personal history of malignant neoplasm of breast
CPT/HCPCS: 12013; 90471; 90715; 99212; G0463

== ENCOUNTER 2021-04-13 13:53 | Emergency (ER) | payer MEDICARE, OTHER, SELFPAY ==
--- NOTE | ~2021-04-13 | XR_ITS ---
XR chest 1V portable 04/13/2021 14:48 Indication: Weakness. Hypertension. Procedure: AP portable chest Comparison: 04/19/2009 Findings: Bibasilar airspace disease, left greater than right. Small pleural effusions. Cardiomegaly. No edema. No pneumothorax. No acute osseous abnormality. Impression: 1: Bibasilar airspace disease, suspicious for pneumonia. 2: Small pleural effusions. Reviewed, dictated and finalized at location B. L OPERATOR Impression: 1: Bibasilar airspace disease, suspicious for pneumonia. 2: Small pleural effusions.
--- NOTE | ~2021-04-13 | CT_ITS ---
EXAMINATION: CT brain wo con DATE: 04/13/2021 14:52 INDICATION: Head injury post fall TECHNIQUE: Computed tomography (CT) of the head was performed without intravenous contrast. Sagittal and coronal reconstructions were performed. The mA was adjusted according to patient size. Iterative reconstruction technique was employed. The dose-length product was 529.67 mGy-cm. COMPARISON: None FINDINGS: Left parietal scalp hematoma. Underlying nondisplaced calvarial fracture. There are multiple small fo ci of subarachnoid hemorrhage including at the bilateral sylvian fissures, the right frontal lobe orly ng the anterior skull base, along the anterior falx near the oumar diana and 3 additional foci in th e more posterior right frontal lobe near the vertex. No subdural or subarachnoid hemorrhage identifie d. No acute intracranial infarction. There is mild scattered white matter hypoattenuation consistent with chronic small vessel ischemic disease. Symmetric prominence of the sulci and ventricles consiste nt with mild age-appropriate diffuse cerebral volume loss. No mass/mass effect. The orbits, paranasal sinuses and mastoid air cells are normal. The right mastoid is hyperpneumatized with small effusion. IMPRESSION: 1. Left posterior skull fracture and multiple foci of subarachnoid hemorrhage with right cerebral hem isphere predominance. Dr. Hudson discussed these findings with Dr. Miranda at 3:08 PM. 2. Age-related changes including mild diffuse volume loss and mild scattered white matter hypoattenua tion consistent with chronic small vessel schema disease. Reviewed, dictated and finalized at location A. PRESIDENT INDUSTRIAL RELATIONS IMPRESSION: 1. Left posterior skull fracture and multiple foci of subarachnoid hemorrhage w ith right cerebral hemisphere predominance. Dr. Hudson discussed these findin gs with Dr. Miranda at 3:08 PM. 2. Age-related changes including mild diffuse volume loss and mild scattered wh ite matter hypoattenuation consistent with chronic small vessel schema disease.
[2021-04-13 14:00] VITALS: BP 145/71; PULSE 96; RESP 22; TEMP 36.7; O2SAT 98
[2021-04-13 14:23] VITALS: PULSE 98
--- NOTE | 2021-04-13 14:38 | ECG_ITS ---
Measurements Intervals [place] Rate: 94 P: -2 WV: 225 QRS: -52 QRSD: 142 T: 114 QT: 414 QTc: 519 Interpretive Statements SINUS RHYTHM WITH FIRST DEGREE AV BLOCK LEFT AXIS DEVIATION RIGHT BUNDLE BRANCH BLOCK LEFT VENTRICULAR HYPERTROPHY WITH ST-T CHANGE BASELINE ARTIFACT- I, II, AVR, V5 ABNORMAL ECG Electronically Signed On 04-13-2021 14:53:40 [employer]EM[employer] by Vance Godinez D.O.
--- NOTE | 2021-04-13 14:42 | ED.WEAKNESS ---
HPI - Weakness General Chief complaint: Weakness Stated complaint: dizzy, N/V Time Seen by Provider: 04/13/21 14:00 Source: patient and RN notes reviewed Mode of arrival: ambulatory Limitations: no limitations History of Present Illness HPI Narrative: This is a 81 year old female who presents for evaluation of weakness and dizziness. Patient reports 2 hours ago she felt weak and lightheaded. She reports she was able to lower her self to a chair. Her daughter is at bedside and she thinks patient fell. She reports patient was found on the ground in the garage . Patient denies falling and hitting her head today. She does reports hitting her head 2 weeks ago. She was evaluated at that time in an urgent care and she received sutures. She denies getting CT brain at that time. She also reports nausea and vomiting over past 2 hours. She denies cough, chest pain, shortness of breath or abdominal pain. She reports chronic left shoulder pain. Related Data Home Medications Medication Instructions Recorded Confirmed calcium carb-vit D3-minerals 600 1 tablet PO BID 12/24/18 03/31/21 mg calcium-400 unit tablet cetirizine 5 mg-pseudoephedrine ER 1 tablet PO Q12H 12/24/18 03/31/21 120 mg tablet,extended release,12hr herbal complex no.174 450 mg 900 mg PO .2QD cap 12/24/18 03/31/21 capsule hydroxychloroquine 200 mg tablet 200 mg PO BID 12/24/18 03/31/21 leflunomide 10 mg tablet 10 mg PO DAILY 12/24/18 03/31/21 multivitamin 1 tablet PO DAILY 12/24/18 03/31/21 psyllium husk 0.4 gram capsule See Rx Instructions PO DAILY 12/24/18 03/31/21 olopatadine 0.1 % eye drops 1 drop EACH EYE BID 03/25/19 03/31/21 biotin 10,000 mcg disintegrating 10,000 mcg PO DAILY 06/21/20 03/31/21 tablet calcium citrate 250 mg 1 tablet PO DAILY tablet 06/21/20 03/31/21 calcium-vitamin D3 5 mcg (200 unit) tablet fish oil 400 mg-flaxseed 400 2 cap PO BID cap 06/21/20 03/31/21 mg-prim,blk staff radiologist,borag oils 200 mg capsule tramadol 200 mg capsule 200 mg PO DAILY 06/21/20 03/31/21 24h,extended release(25-75) vitamins A,C,E-hitn-vmzyti 14,320 1 cap PO DAILY cap 06/21/20 03/31/21 unit-226 mg-200 unit capsule Allergies Allergy/AdvReac Type Severity Reaction Status Date / Time No Known Allergies Allergy Verified 03/30/21 11:23 Review of Systems Review of Systems: All systems reviewed & are unremarkable except as noted in HPI and below PMFSH Past Medical History Medical History History of breast cancer History of colonic polyps Hypertension Hypothyroidism Osteoarthritis Rotator cuff tear, right Surgical History Surgical History History of appendectomy History of breast surgery History of cataract surgery History of hip surgery History of hysterectomy Status post de Quervain's release surgery Family History Family History Mother Family history of blood dyscrasia, Onset Age: 92 Cerebrovascular accident, Onset Age: 92 Father Hypertension, Onset Age: 98 Other Breast cancer Rheumatoid arthritis Arthritis Spinal stenosis Social History Social History Smoking status: Never smoker Second hand tobacco smoke exposure: Yes Alcohol intake: current Alcohol use details: socially Substance use: never Substance use type: does not use Spiritual care concerns: No Exam Const: General: alert Nutritional Appearance: thin Orientation/consciousness: patient oriented x3 HENMT: Other: left posterior scalp swelling, no bleeding, no laceration Eyes: Pupils: Equal, round and reactive pupils present EOM: EOMs intact bilaterally Chest: Chest palpation & inspection: normal inspection of the chest Resp: Effort & Inspection: normal respiratory effort and no retr
[2021-04-13 15:17] LABS: Basophils Percent Auto 0.6 % (0.2-1.2); Hematocrit 37.4 % (37.0-47.0); Hemoglobin 11.8 g/dL (12.0-15.0); Immature Granulocyte Absolute 0.03 K/mm3 (0.00-0.031); Immature Granulocyte Percent A 0.4 % (0-0.5); Immature Platelet Fraction Pct 6.3 % (0.9-11.2); Lymphocytes Absolute Auto 0.54 K/mm3 (0.9-3.2); Lymphocytes Percent Auto 7.7 % (18.3-44.2); Mean Corpuscular HGB Conc 31.6 g/dl (32-36); Mean Corpuscular Hemoglobin 30.4 pg (26-34); Mean Corpuscular Volume 96.4 fl (80-100); Monocytes Absolute Auto 0.7 K/mm3 (0.1-0.6); Monocytes Percent Auto 9.9 % (2.6-8.5); Neutrophils Absolute Auto 5.7 K/mm3 (1.3-6.7); Neutrophils Percent Auto 81.4 % (45.5-73.1); Platelet Count Result 142 k/mm3 (150-375); Red Blood Count 3.88 M/mm3 (4.2-5.4); Red Cell Distribution Width 16.1 % (11.5-14.5)
[2021-04-13 15:24] LABS: Lactic Acid Reflex 2.1 mmol/L (0.7-2.1)
[2021-04-13 15:25] LABS: INR 1.4; Prothrombin Time 16.6 Seconds (11.1-14.7)
[2021-04-13 15:26] LABS: Partial Thromboplastin Time 29.6 SECONDS (22.3-36.8)
[2021-04-13 15:45] LABS: Add Urine Microscopic? YES; Appearance Urine Clear (Clear); Bilirubin Urine Negative (Negative); Blood Urine Negative (Negative); Color Urine Yellow (Yellow); Glucose Urine UA Negative (Negative); Ketones Urine Trace mg/dL (Negative); Leukocyte Esterase Ur Negative LEU/UL (Negative); Nitrate Urine Negative (Negative); Protein Urine 2+ mg/dL (Negative); RBC Urine 0-2 /hpf (0-2); Specific Grav Ur 1.019 (1.001-1.035); Urobilinogen Urine Negative mg/dL (<2.0); WBC Urine 0-3 /hpf
--- NOTE | 2021-04-13 15:47 | PC.NURSE ---
made contact with [facility], [facility], [facility], and [facility] to transfer pt to [facility]. all companies declined. made contact with [facility] to transfer pt. [facility] has an eta of 18 minutes. Lights and sirens were called per Dr. Miranda
[2021-04-13 15:52] VITALS: BP 143/85; PULSE 94; RESP 18; TEMP 36.6; O2SAT 100
[2021-04-13 16:02] LABS: Alanine Aminotransferase 528 U/L (4-35); Albumin Level 3.7 g/dL (3.5-5.1); Alkaline Phosphatase 203 U/L (38-126); Anion Gap 7 mmol/L (8-16); Bilirubin,Total 0.7 mg/dL (0.2-1.3); Blood Urea Nitrogen 38 mg/dL (7-17); Calcium 9.1 mg/dL (8.4-10.2); Carbon Dioxide 29 mmol/L (22-30); Chloride 99 mmol/L (98-107); Estimated CRCL calculation 21 ml/min; Estimated Glomerular Filt Rate 39; Glucose 123 mg/dL (65-110); Lipase 52 U/L (23-300); Magnesium 2.2 mg/dL (1.6-2.3); Potassium 4.9 mmol/L (3.4-5.0); Sodium 135 mmol/L (137-145)
--- NOTE | 2021-04-13 16:12 | PC.NURSE ---
khanh has arrived and is aware that pt is going to [facility] er
[2021-04-13 16:23] LABS: SARS-CoV-2 RNA PCR Negative
[2021-04-13 16:44] LABS: Aspartate Amino Transferase 858 U/L (14-36)
[2021-04-13 18:12] LABS: Reflex Lactic Acid Yes or No Add Lactic
== END 2021-04-13 16:08 | disposition short-term general hospital (02) ==
PROVIDERS: Emergency Provider General Practice; PCP Internal Medicine
DX: S06.6X9A Traumatic subarachnoid hemorrhage with loss of consciousness of unspecified duration, initial encounter (principal); S02.82XA Fracture of other specified skull and facial bones, left side, initial encounter for closed fracture; Z20.822 Contact with and (suspected) exposure to COVID-19; E03.9 Hypothyroidism, unspecified; I10 Essential (primary) hypertension; M19.90 Unspecified osteoarthritis, unspecified site; Z86.010 Personal history of colon polyps; Z85.3 Personal history of malignant neoplasm of breast; Z98.49 Cataract extraction status, unspecified eye; R91.8 Other nonspecific abnormal finding of lung field; I44.0 Atrioventricular block, first degree; I45.10 Unspecified right bundle-branch block; I51.7 Cardiomegaly; W19.XXXA Unspecified fall, initial encounter
CPT/HCPCS: 36415; 70450; 71045; 80053; 81001; 83605; 83690; 83735; 85025; 85055; 85610; 85730; 93005; 99285; C9803; L0140; U0003; U0005

== ENCOUNTER 2021-05-21 17:16 | Emergency (ER) | payer MEDICARE, OTHER, SELFPAY ==
[2021-05-21] VITALS (14 sets, daily range): BP systolic 135–154; BP diastolic 75–92; PULSE 69–80; RESP 16–34; TEMP 36.8; O2SAT 95–99
--- NOTE | ~2021-05-21 | XR_ITS ---
EXAMINATION: XR chest 2V Exam Date/Time: 05/21/2021 19:50 CDT CLINICAL HISTORY: FALL X2,DIZZY,EXTREMITY EDEMA,HX CANCER,HTN Comparison: 04/13/2021 RESULT: Lines, tubes, and devices: Right axillary clips. Lungs and pleura: Bibasilar segmental and subsegmental air space disease and costophrenic angle blun ting, greater on the left. Cardiomediastinal silhouette: Stable cardiomediastinal silhouette. Other: No acute osseous or upper abdominal finding. IMPRESSION: No acute cardiopulmonary process. Stable chronic bibasilar atelectasis/consolidation and small pleura l effusions, worse on the left. Reviewed, dictated and finalized at location K. IMPRESSION: No acute cardiopulmonary process. Stable chronic bibasilar atelectasis/consolid ation and small pleural effusions, worse on the left.
--- NOTE | ~2021-05-21 | CT_ITS ---
EXAMINATION: CT brain wo con DATE: 05/21/2021 19:50 INDICATION: Fall, struck head. TECHNIQUE: Computed tomography (CT) of the head was performed without intravenous contrast. The mA wa s adjusted according to patient size. Iterative reconstruction technique was employed. The dose-lengt h product was 529.67 mGy-cm. COMPARISON: 04/13/2021. FINDINGS: No acute intracranial hemorrhage or extra-axial fluid collection. Interval resolution of the previous ly described intracranial hemorrhage. No hydrocephalus, mass, or herniation. No acute ischemic infarct. Unremarkable dural venous sinus attenuation. No acute osseous abnormality. Incompletely healed linear left posterior skull fracture. The aerated spaces are clear. Moderate atrophy and mild chronic white matter change. IMPRESSION: No acute intracranial process. Reviewed, dictated and finalized at location K.
--- NOTE | 2021-05-21 19:11 | ECG_ITS ---
Measurements Intervals [place] Rate: 72 P: AL: 0 QRS: -49 QRSD: 142 T: 123 QT: 449 QTc: 492 Interpretive Statements SINUS RHYTHM LEFT ANTERIOR FASCICULAR BLOCK INTRAVENTRICULAR CONDUCTION DELAY LEFT VENTRICULAR HYPERTROPHY AND ST-T CHANGE POSSIBLE INFERIOR MYOCARDIAL INFARCTION , AGE INDETERMINATE Electronically Signed On 05-22-2021 8:44:55 CDT by Shiraz Freedman M.D.
--- NOTE | 2021-05-21 19:13 | PC.NURSE ---
Dr. Hall at bedside to assess pt.
--- NOTE | 2021-05-21 19:30 | PC.NURSE ---
Patient report given to MARY CARMEN Beltrán. All questions answered and care of patient transferred.
--- NOTE | 2021-05-21 19:36 | ED.DIZZY ---
HPI - Dizziness General Chief Complaint: Dizziness Stated Complaint: fall Time Seen by Provider: 05/21/21 18:36 Source: patient History of Present Illness HPI Narrative: Patient presents with a fall. Patient reports she fell earlier today she was sitting on her bed something on the ground she leaned over to pick it up fell forward and struck her head on the ground. She was then transported to the ER for further evaluation. For she was given Lasix at her nursing facility and when attempting use the bathroom here in the ER she reported feeling dizzy scribes her vision is getting blurry and then fell and struck her shoulder. Reports her shoulder does not have any pain. She denies any loss of consciousness denies any focal numbness or weakness denies any chest pain shortness of breath nausea vomiting. Denies use of any blood thinners. Reports she was not experiencing dizziness until after her first fall today. Related Data Home Medications Medication Instructions Recorded Confirmed calcium carb-vit D3-minerals 600 1 tablet PO BID 12/24/18 03/31/21 mg calcium-400 unit tablet cetirizine 5 mg-pseudoephedrine ER 1 tablet PO Q12H 12/24/18 03/31/21 120 mg tablet,extended release,12hr herbal complex no.174 450 mg 900 mg PO .2QD cap 12/24/18 03/31/21 capsule hydroxychloroquine 200 mg tablet 200 mg PO BID 12/24/18 03/31/21 leflunomide 10 mg tablet 10 mg PO DAILY 12/24/18 03/31/21 multivitamin 1 tablet PO DAILY 12/24/18 03/31/21 psyllium husk 0.4 gram capsule See Rx Instructions PO DAILY 12/24/18 03/31/21 olopatadine 0.1 % eye drops 1 drop EACH EYE BID 03/25/19 03/31/21 biotin 10,000 mcg disintegrating 10,000 mcg PO DAILY 06/21/20 03/31/21 tablet calcium citrate 250 mg 1 tablet PO DAILY tablet 06/21/20 03/31/21 calcium-vitamin D3 5 mcg (200 unit) tablet fish oil 400 mg-flaxseed 400 2 cap PO BID cap 06/21/20 03/31/21 mg-prim,blk mortgage advisor,borag oils 200 mg capsule tramadol 200 mg capsule 200 mg PO DAILY 06/21/20 03/31/21 24h,extended release(25-75) vitamins A,C,X-zdtr-pjtpbn 14,320 1 cap PO DAILY cap 06/21/20 03/31/21 unit-226 mg-200 unit capsule Allergies Allergy/AdvReac Type Severity Reaction Status Date / Time No Known Allergies Allergy Verified 03/30/21 11:23 Review of Systems Review of Systems: CONSTITUTIONAL: Denies fever, chills, or sweats. EYES: Denies visual changes, redness, or discharge. ENT: Denies rhinorrhea, congestion, sore throat, or otalgia. CARDIOVASCULAR: Denies chest pain, palpitations, or edema. RESPIRATORY: Denies cough or dyspnea. GASTROINTESTINAL: Denies abdominal pain, nausea, vomiting, or diarrhea. GENITOURINARY: Denies dysuria or hematuria. SKIN: Denies rash or itching. MUSCULOSKELETAL: Denies back pain, joint pain, or myalgia. NEUROLOGIC: Denies headache, numbness, or weakness. PSYCHIATRIC: Denies anxiety or depression. [facility] Past Medical History Medical History History of breast cancer History of colonic polyps Hypertension Hypothyroidism Osteoarthritis Rotator cuff tear, right Surgical History Surgical History History of appendectomy History of breast surgery History of cataract surgery History of hip surgery History of hysterectomy Status post de Quervain's release surgery Family History Family History Mother Family history of blood dyscrasia, Onset Age: 92 Cerebrovascular accident, Onset Age: 92 Father Hypertension, Onset Age: 98 Other Breast cancer Rheumatoid arthritis Arthritis Spinal stenosis Social History Social History Smoking status: Never smoker Second hand tobacco smoke exposure: Yes Alcohol intake: current Alcohol use details: socially Substance use: never Substance use type: does no
[2021-05-21 20:12] LABS: Basophils Percent Auto 0.7 % (0.2-1.2); Hematocrit 36.2 % (37.0-47.0); Hemoglobin 11.5 g/dL (12.0-15.0); Immature Granulocyte Absolute 0.03 K/mm3 (0.00-0.031); Immature Granulocyte Percent A 0.5 % (0-0.5); Lymphocytes Absolute Auto 0.82 K/mm3 (0.9-3.2); Lymphocytes Percent Auto 14.7 % (18.3-44.2); Mean Corpuscular HGB Conc 31.8 g/dl (32-36); Mean Corpuscular Volume 97.6 fl (80-100); Mean Platelet Volume 12.9 fl (7.4-10.4); Monocytes Absolute Auto 0.7 K/mm3 (0.1-0.6); Monocytes Percent Auto 12.2 % (2.6-8.5); Neutrophils Percent Auto 71.9 % (45.5-73.1); Platelet Count Result 103 k/mm3 (150-375); Red Blood Count 3.71 M/mm3 (4.2-5.4); Red Cell Distribution Width 17.9 % (11.5-14.5); White Blood Count 5.6 K/mm3 (4.5-10.0)
[2021-05-21 20:19] LABS: Add Urine Microscopic? YES; Appearance Urine Clear (Clear); Bacteria Urine Trace /hpf; Bilirubin Urine Negative (Negative); Blood Urine Negative (Negative); Color Urine Straw (Yellow); Glucose Urine UA 2+ mg/dL (Negative); Ketones Urine Negative (Negative); Leukocyte Esterase Ur Negative LEU/UL (Negative); Nitrate Urine Negative (Negative); Protein Urine Negative (Negative); RBC Urine 0-2 /hpf (0-2); Specific Grav Ur 1.009 (1.001-1.035); Squamous Epithelial Cell Urine Rare /hpf (Few); Urobilinogen Urine Negative mg/dL (<2.0); WBC Urine 0-3 /hpf
[2021-05-21 20:25] LABS: INR 1.1
[2021-05-21 20:26] LABS: Partial Thromboplastin Time 31.5 SECONDS (22.3-36.8)
[2021-05-21 20:33] LABS: Glucose Point of Care 118 mg/dl (65-105)
[2021-05-21 22:21] LABS: Alanine Aminotransferase 74 U/L (4-35); Albumin Level 3.5 g/dL (3.5-5.1); Alkaline Phosphatase 149 U/L (38-126); Anion Gap 5 mmol/L (8-16); Aspartate Amino Transferase 82 U/L (14-36); Bilirubin,Total 0.9 mg/dL (0.2-1.3); Blood Urea Nitrogen 36 mg/dL (7-17); Calcium 8.3 mg/dL (8.4-10.2); Carbon Dioxide 35 mmol/L (22-30); Chloride 97 mmol/L (98-107); Estimated CRCL calculation 23 ml/min; Estimated Glomerular Filt Rate 39; Glucose 109 mg/dL (65-110); Magnesium 1.8 mg/dL (1.6-2.3); Potassium 2.6 mmol/L (3.4-5.0); Sodium 137 mmol/L (137-145)
[2021-05-21] MEDS: POTASSIUM CHLORIDE 20 MEQ PACKET (FOR LIQUID) 40 MEQ PO (22:38)
--- NOTE | 2021-05-21 22:57 | PC.NURSE ---
tried to call report back to [facility] for this patient at [phone] and at [phone].
== END 2021-05-21 23:22 ==
PROVIDERS: Emergency Provider Emergency Medicine; PCP Internal Medicine
DX: E87.6 Hypokalemia (principal); S09.90XA Unspecified injury of head, initial encounter; I10 Essential (primary) hypertension; E03.9 Hypothyroidism, unspecified; M19.90 Unspecified osteoarthritis, unspecified site; Z79.899 Other long term (current) drug therapy; Z85.3 Personal history of malignant neoplasm of breast; Z90.710 Acquired absence of both cervix and uterus; Z86.010 Personal history of colon polyps; W01.10XA Fall on same level from slipping, tripping and stumbling with subsequent striking against unspecified object, initial encounter
CPT/HCPCS: 36415; 70450; 71046; 80053; 81001; 82948; 83735; 85025; 85610; 85730; 93005; 99284; A9270